=== PATIENT | male | born 2005 | race Caucasian/White ===

== ENCOUNTER 2024-05-04 10:50 | Emergency (ER) | payer BC, SELFPAY ==
--- NOTE | ~2024-05-04 | XR_ITS ---
[id number] DATE: 05/04/2024 11:13 INDICATION: Injury. Anterior left rib pain. TECHNIQUE: PA chest. 3 views of the left ribs. COMPARISON: None FINDINGS: Normal heart size. No hilar or mediastinal enlargement. No pulmonary infiltrate or consolid ation, pleural effusion or pulmonary vascular congestion or pneumothorax is detected. No left rib fracture or bone destruction is noted. IMPRESSION: Negative Reviewed, dictated and finalized at [facility] Reviewed, dictated and finalized at [facility] 

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
[2024-05-04 11:01] VITALS: BP 135/76; PULSE 86; RESP 16; TEMP 36.4; O2SAT 99
== END 2024-05-04 11:57 | disposition home or self-care (01) ==
PROVIDERS: Emergency Provider Nurse Practitioner Family
DX: S20.211A Contusion of right front wall of thorax, initial encounter (principal); W22.8XXA Striking against or struck by other objects, initial encounter
CPT/HCPCS: 71101; 99203; G0463